=== PATIENT | male | born 1955 ===

== ENCOUNTER 2025-04-19 13:19 | Outpatient (AMB) | payer MEDICARE, MEDICAID, SELFPAY ==
[2025-04-19 13:29] VITALS: BMI 31.0
--- NOTE | 2025-04-19 13:29 | A.PHYSOV_ITS ---
Vital Signs 04/19/25 13:29 Height 5 ft 6 in Weight 192 lb BMI 31.0 Intake Visit Reasons: NPV Ivana Ref- back pain w.sciatica Intake Note: Patient is a 69 year old male here for new patient office visit. Patient is being referred for Back pain with sciatica. 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 The patient reports a long-standing history of lower back pain, which worsens with prolonged standing and necessitates sitting down for relief. This is associated with right-sided sciatica with pain radiating to the buttock and down the leg. Recently, the patient has also experienced pain in both hips upon sitting. The right knee pain is a more recent issue, having started about two months ago, with the pain localized to the side of the knee. It is exacerbated by walking, requiring the patient to hold onto objects for support at home. The patient was in a rehabilitation center for two and a half weeks after experiencing five falls in one day and twisted the knee a couple of times. A knee x-ray performed at the rehab center was reportedly negative, and the patient is currently receiving physical therapy at home. Patient has failed conservative treatment. The patient has a history of diabetes. The patient has made dietary changes, c utting out sugary items and opting for sugar-free alternatives. Other medical history includes diverticulitis, which imposes dietary restrictions such as avoiding seeds, and arthritis in the hands. The patient had an ankle fracture 12 years ago, which was repaired with a bernard. For pain management, the patient takes Tylenol. The patient found muscle relaxants helpful during rehab but is not currently taking them due to concerns about increased fall risk. The patient denies any known drug allergies. I reviewed the referring provider's no prior to consultation. Pain Description - Location: The patient reports pain in the lower back, both hips when sitting, and the right knee, primarily on the side. - Radiation: The back pain radiates down the right leg into the buttock, consistent with sciatica. - Severity: The patient rates both the back pain and knee pain as a 5 out of 10. - Exacerbating factors: Back pain is worsened by prolonged standing and leaning backward; hip pain is triggered by sitting; and knee pain is aggravated by walking. - Relieving factors: Sitting down alleviates the back pain, and bending forward is more comfortable than extending backward. - Associated symptoms and impact on function: The patient has to hold onto things to walk at home and has significant fear of walking outside. [facility] Surgical History History of ankle surgery Hx of appendectomy Social History Alcohol intake: current Alcohol intake frequency: does not drink Patient Tobacco Use Status: Never used Tobacco Review of Systems Narrative Review of Systems - Musculoskeletal: Reports chronic low back pain, bilateral hip pain on sitting, right knee pain, and arthritis in hands. - Neurological: Reports right-sided sciatica. - General: Reports feeling shaky and unsteady, and has a history of falls. - GI: Reports history of diverticulitis with dietary restrictions. Physical Exam Exam Exam: Physical Exam Lumbar Spine: Examination of his lumbar spine, there is no visible swelling or deformity. He is tender to lower lumbar facets. Has full range of motion of the lumbar spine with pain. He does have an increase in pain with facet loading. Special Tests: Lhermittes sign was negative Heel Toe walk is normal Left straight leg raise: Negative Right straight leg raise: Negative Special tests Teri test is negative Ganslen's test is negative SI Joint compression test negative Heide test negative Piriformis stretch is negative Lower Extremities: Full range of motion bilateral lower extremities. He is tender to the medial joint line. No effusion. Ligaments are intact. He does have pain with Manuel testing medially. No calf pain or edema. Neuro: Sensation: Intact to lower extremities bilaterally Strength L2 (Psoas): 5/5 on the left and 5/5 on the right. L3 (Quads): 5/5 on the left and 5/5 on the right. L4 (Ant tibialis): 5/5 on the left and 5/5 on the right. L5 (EHL) 5/5 on the left and 5/5 on the right. S1 (Gastroc): 5/5 on the left and 5/5 on the right. DTR L4: (Patellar) Left 1 Right 1 S1: (Achilles) Left 1 Right 1 Babinski Downgoing No pathologic clonus. No involuntary movement. Vital Signs: BMI result Body Mass Index 31.0 Office Procedures AMB Knee Injection AMB Knee Injection Procedure Details: Right Knee injection: The risks, benefits and complications of the [ ] knee injection were discussed with the patient including but not limited to increased serum glucose, infection, nerve pain, fat atrophy, pigment augmentation, bleeding and pain. All questions were answered to the patient's satisfaction. Verbal consent was obtained. The patient was eager to proceed. Using aseptic technique with Betadine, ethyl chloride was then used to desensitize the skin. Using a 22-gauge needle 40 mg of Kenalog and 3 mL 2% lidocaine were injected into the knee joint. A Band-Aid was applied. Patient tolerated the procedure well without immediate complication. Postinjection instructions were given. Knee Injection - : Right All charges added?: Procedure code (CPT) selection complete Office Meds Kenalog 40 mg/mL suspension for injection Performing Provider: RYLEE Fischer [facility] Administered by: RYLEE Fischer on 04/19/25 17:02 Dose Route Admin Location Dispensed Lot Number Expiration Date [facility] Cover Creaser 40 mg intra-articular 1 mL [id number] [employer] Total Dispensed Waste 1 mL 0 % lidocaine (PF) 20 mg/mL (2 %) injection solution Performing Provider: RYLEE Fischer [facility] Administered by: RYLEE Fischer on 04/19/25 17:02 Dose Route Admin Location Dispensed Lot Number Expiration Date [facility] [place] Cover Creaser 60 mg intra-articular 50 mL [id number] Total Dispensed Waste 50 mL 0 % Assessment & Plan Assessment & Plan (1) Lumbar radiculopathy: Code(s): M54.16 - Radiculopathy, lumbar region Category: Medical (2) Lumbar spondylosis: Code(s): M47.816 - Spondylosis without myelopathy or radiculopathy, lumbar region Category: Medical (3) Osteoarthritis of right knee: Code(s): M17.11 - Unilateral primary osteoarthritis, right knee Category: Medical Qualifiers: Osteoarthritis type: primary Qualified Code(s): M17.11 - Unilateral primary osteoarthritis, right knee Plan Pain Management - Analgesia: The patient is currently taking Tylenol for pain. - Current Pain: The patient rates both back and knee pain at a 5 out of 10. - Activities of Daily Living: Pain interferes with ambulation, requiring the patient to hold onto objects to walk inside the house. - The patient has a fear of walking outside. - Adverse Effects: The patient is not taking prescribed muscle relaxers due to concerns about an increased risk of falling. - Affect: The patient expresses a significant fear of needles. - Aberrant Drug Related Behaviors: No aberrant behaviors were reported or observed. Plan Patient was informed and verbally consented to the use of an ambient scribe for clinic note documentation during this visit. 1. Right Knee Pain An intra-articular corticosteroid injection was administered to the right knee for pain relief. The patient was informed that the injection could provide pain relief for three to six months. The risks, including infection, bleeding, nerve damage, and a temporary increase in blood sugar levels, were discussed, and informed consent was obtained. 2. Chronic Low Back Pain With Right Sciatica An MRI of the lumbar spine will be ordered to better evaluate the discs and nerves, as the patient's prior CT scan is considered suboptimal for this purpose. The patient has no contraindications to an MRI. Follow-up will be arranged to discuss MRI results and consider further interventions, such as a ba ck injection. Patient has failed conservative treatment. 3. Type 2 Diabetes Mellitus The patient was counseled on dietary management, emphasizing whole foods over processed items to improve glycemic control. The patient was advised that the corticosteroid injection may temporarily increase blood sugar and to contact their primary doctor if levels exceed 300 mg/dL. We discussed the benefits of proper nutrition and exercise to maintain a healthy body weight to improve longevity and function. We also discussed the benefits of proper lifting techniques, core strengthening and proper posture. Thank you for allowing me to participate in the care of your patient. Orders: Orders AMB Knee Injection Today M17.11 - Unilateral primary osteoarthritis, right knee MR lumbar spine wo con Today M51.16 - Intervertebral disc disorders with radiculopathy, lumbar region Coding Level of Care Code Tele New Pt Level 4 (04768) Diagnoses Lumbar radiculopathy M54.16 Lumbar spondylosis M47.816 Primary osteoarthritis of right knee M17.11 Osteoarthritis type: primary CPT Codes AMB Knee Injection - Hip/Bursa Injection - : Right ([id number])
--- OUTSIDE RECORDS SUMMARY | 2025-04-19 16:27 | XMS_ITS | Data Portability ---
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 We did discuss that he is due for annual audiometric testing. He does not have time to stay for that today. We will bring him back next available for cerumen removal followed by audiometric testing. [email or web address] Not available 07/11/2024 11:15:11 01/26/2025 01/26/2025 69-year-old male presents for routine cerumen removal and updated audiometric testing. Cerumen impaction removed bilaterally. Bilateral TMs are intact with well aerated middle ear spaces. Audiometric testing demonstrated normal sloping to mild to severe sensorineural hearing loss bilaterally, essentially stable. Patient is a candidate for amplification and medical clearance was provided today. He will follow-up in 6 months for cerumen removal and yearly for audiometric testing. Follow-up sooner with any concerns. [email or web address] Not available 01/26/2025 10:21:08 Plan of Treatment Reminders Order Date Submit Date Provider Last Modified By Organization Details Last Modified Time Details Appointments Establish ed 15 2025 09:00A M MICHAEL FREEMAN PA-C Not available Not available Not available Lab None recorded. Referral None recorded. Procedures None recorded. Surgeries None recorded. Imaging XR, chest, 2 view 2023 024 [facility] ([facility]), [address] [place], [address], 11/03/2023 08:30:29 Medication Orders omeprazol e 20 mg capsule,d elayed release 2023 024 [facility][id number], [address] [place], [address], 10/30/2023 11:15:07 Patient TargetsNo targets recorded. Patient InstructionsNo instructions recorded. Reason for Referral None Reported. Results Created Date Observation Date Name Description Value Unit Range Abnormal Flag Note LastModifiedBy Organization Detail LastModifiedTime 11/03/19 24 11/02/2023 XR, chest , 2 view No observ ation record ed. [facility] ([facility]) [address] [place], [address], 11/30/2023 10:11:49 01/13/20 24 08/28/2022 imagi ng/di agnos tic resul t No observ ation record ed. [email or web address] Not Available 03:57:55 01/27/20 25 audio gram No observ ation record ed. BARCODE Not Available 2024 13:43:58 Result Notes None recorded. Problems Name Problem SNOMED Code Status Onset Date Resolution Date Notes Provider Name and Address Organization Details Recorded Time Sensorine ural hearing loss of bilateral ears 697890549 Active 2016 Sensorine ural hearing loss, bilateral ; Note: Date Diagnosed : 11/04/2016 10:49 AM (H90.3) Not Available [facility] 4 03:32:35 Impacted cerumen of bilateral ears 12372810747 02000 Active 2016 Impacted cerumen, bilateral ; Note: Date Diagnosed : 11/04/2016 10:23 AM (H61.23) Not Available [facility] 4 03:32:36 Laryngoph aryngeal reflux 637385546 Active 2023 TINO LOONEY MD [address] [place] [address], [facility] [place], [address] , [facility] - [facility] 4 11:13:30 Chronic cough 77799563 Active 2023 TINO LOONEY MD [address] [place] [address],[place] [address], [place], [address] , [facility] - [facility] 4 11:15:14 Problem Notes None recorded. Procedures Surgical History Date Name Laterality Status Provider Name and Address Organization Details Recorded Time 01/27/20 25 Cerumen removal without microscope bilat completed CHAS BARTHOLOMEW PA-C [address] [place] [address],[place] [address], [place], [address], [place] - [facility] 01/26/2025 09:22:49 01/27/20 25 Air & Speech Audio with Tymps - [id number], [id number] & [id number] completed DARIO LEVI MA, CCC-A [address] [place] [address],[place] [address], [place], [address], [facility] - [facility] 01/26/2025 09:45:56 07/11/19 25 Cerumen removal without microscope bilat completed Alma Delia Amaro [place] - [facility] 07/11/2024 11:14:33 10/30/19 24 Fiberoptic Laryngoscopy (Comprehensive) completed TINO LOONEY MD [address] [place] [address],[place] [address], [place], [address], [facility] - [facility] 10/31/2023 15:12:53 Imaging Results None recorded. Procedure Notes None recorded. Medical Equipment None Reported. Allergies No known drug allergies Medications Name Sig Start Date Stop Date Status Note LastModified by Organization Details LastModified Time metformin 500 mg tablet TAKE 1 TABLET BY MOUTH THREE TIMES A DAY active Not Available Not Available No t Available atorvasta tin 20 mg tablet TAKE 1 TABLET (20 MG TOTAL) BY MOUTH ONCE DAILY active Not Available Not Available No t Available acetamino phen 500 mg tablet TAKE 1 TABLET BY MOUTH EVERY 4-6 HOURS NEEDED FOR FEVER OR PAIN 10/29 completed Not Available Not Available Not Available levothyro xine 25 mcg tablet 2019 active Medicati on ID: [id number] D uration Value: 90 Brand Name: levothyr oxine Se nd Method: E-Prescr ibed Sub s Allowed: subs OK Speci al Instruct ion: TAKE 1 TABLET BY MOUTH EVERY DAY Medi cationGe nericNam e: levothyr oxine Not Available Not Available Not Available lorazepam 0.5 mg tablet 01/03 completed Medicati on ID: [id number] D uration Value: 30 Reason: () Brand Name: lorazepa m Send Method: E-Prescr ibed Sub s Allowed: subs OK Speci al Instruct ion: TAKE 1 TABLET BY MOUTH ONCE A DAY NEEDED M edicatio nGeneric Name: lorazepa m Not Available Not Available Not Available tamsulosi n 0.4 mg capsule TAKE 1 CAPSULE (0.4 MG TOTAL) BY MOUTH 30 MINUTES AFTER SAME MEAL DAILY active Not Available Not Available No t Available trazodone 100 mg tablet 10/29 completed Medicati on ID: [id number] D uration Value: 90 Brand Name: trazodon e Send Method: E-Prescr ibed Sub s Allowed: subs OK Speci al Instruct ion: TAKE 3 TABLETS BY MOUTH EVERY DAY AT BEDTIME Medicati onGeneri cName: trazodon e Medica tion ID: [id number] D uration Value: 90 Brand Name: trazodon e Send Method: E-Prescr ibed Sub s Allowed: subs OK Speci al Instruct ion: TAKE 3 TABLETS BY MOUTH EVERY DAY AT BEDTIME Medicati onGeneri cName: trazodon e Not Available Not Available Not Available levothyro xine 50 mcg tablet TAKE 1 TABLET BY MOUTH EVERY DAY active Not Available Not Available No t Available simvastat in 20 mg tablet 01/03 completed Medicati on ID: [id number] D uration Value: 30 Reason: () Brand Name: simvasta tin Send Method: E-Prescr ibed Sub s Allowed: subs OK Speci al Instruct ion: TAKE 1 TABLET BY MOUTH EVERY EVENING Medicati onGeneri cName: simvasta tin Not Available Not Available Not Available trazodone 150 mg tablet TAKE 2 TABLETS BY MOUTH AT BEDTIME. active Not Available Not Available No t Available trazodone 300 mg tablet TAKE 1 TABLET BY MOUTH EVERYDAY AT BEDTIME active Not Available Not Available No t Available docusate sodium 100 mg capsule TAKE 1 CAPSULE BY MOUTH TWICE A DAY active Not Available Not Available No t Available omeprazol e 20 mg capsule,d elayed release TAKE 1 CAPSULE EVERY DAY BY ORAL ROUTE BEFORE MEAL(S). 2023 active Not Available Not Available Not Sawyerai lable gabapenti n 100 mg capsule TAKE 1 CAPSULE BY MOUTH AT BEDTIME. active Not Available Not Available No t Available ondansetr on 4 mg disintegr ating tablet DISSOLVE 1 TABLET BY MOUTH EVERY 6 TO 8 HOURS. 10/29 completed Not Available Not Available Not Available metformin ER 500 mg tablet,ex tended release 24 hr 10/29 completed Medicati on ID: [id number] D uration Value: 90 Brand Name: metformi n Send Method: E-Prescr ibed Sub s Allowed: subs OK Speci al Instruct ion: TAKE 1 TABLET BY MOUTH EVERY DAY WITH FOOD AND WATER Me dication GenericN kaykay: metformi n Medica tion ID: [id number] D uration Value: 90 Brand Name: metformi n Send Method: E-Prescr ibed Sub s Allowed: subs OK Speci al Instruct ion: TAKE 1 TABLET BY MOUTH EVERY DAY WITH FOOD AND WATER Me dication GenericN kaykay: metformi n Not Available Not Available Not Available sertralin e 50 mg tablet TAKE 1 TABLET BY MOUTH EVERY DAY active Not Available Not Available No t Available amoxicill in 875 mg-potass ium clavulana te 125 mg tablet TAKE 1 TABLET BY MOUTH TWICE A DAY 10/29 completed Not Available Not Available Not Available oxycodone 5 mg tablet TAKE 1 TABLET BY MOUTH EVERY 6 TO 8 HOURS NEEDED FOR SEVERE PAIN (SCALE 7-10). 10/29 completed Not Available Not Available Not Available Vitamin D3 25 mcg (1,000 unit) tablet TAKE 1 TABLET (1,000 UNITS TOTAL) BY MOUTH DAILY active Not Available Not Available No t Available duloxetin e 30 mg capsule,d elayed release TAKE 1 CAPSULE BY MOUTH EVERY DAY active Not Available Not Available No t Available OneTouch Verio test strips 2019 active Medicati on ID: [id number] D uration Value: 90 Brand Name: OneTouch Verio test strips S end Method: E-Prescr ibed Sub s Allowed: subs OK Speci al Instruct ion: USE TO TEST BLOOD SUGAR DAILY Me dication GenericN kaykay: OneTouch Verio test strips Not Available Not Available Not Available Linzess 145 mcg capsule Take 1 capsule every day by oral route. active Not Available Not Available No t Available Linzess 290 mcg capsule TAKE 1 CAPSULE (290 MCG TOTAL) BY MOUTH 1 (ONE) TIME EACH DAY IN THE MORNING. active Not Available Not Available No t Available OneTouch Delica Plus Lancet 30 gauge USE INSTRUCT ED active Not Available Not Available No t Available Vitals Date Recorded Body height Body mass index (BMI) Body weight Provider Name and Address Organization Details Last Updated DateTime 07/11/2024 167.64 cm 31.8 kg/m2 76742.7 g Angelia Gonsalves [facility] 07/11/2024 11:02:13 Date Recorded Body height Body mass index (BMI) Body weight Provider Name and Address Organization Details Last Updated DateTime 10/30/2023 167.64 cm 31.8 kg/m2 38170.7 g iGselle Madrigal [facility] 10/30/2023 10:52:41 Date Recorded Body height Body mass index (BMI) Body weight Provider Name and Address Organization Details Last Updated DateTime 01/26/2025 167.64 cm 31.2 kg/m2 67712.33 g Chely Perez [facility] 01/26/2025 09:00:40 Social History None recorded. Functional Status Question Answer Note LastModified by Organization D etails LastModified Time What is your level of alcohol consumption? None [email or web address] Information not available 10/30/2023 Mental Status None recorded. Family History Nothing Reported. Medical History Condition Response Allergies/Hayfever N Cancer Y Thyroid Problems Y Asthma N GERD/Reflux N Past Encounters Encounter ID Performer Location Encounter Start Date Encounter Closed Date Diagnosis/Indication Diagnosis SNOMED-CT Code Diagnosis ICD10 Code Diagnosis IMO Codes Diagnosis Note [id number] TINO LOONEY MD [facility] [address] [address] 10/30/2023 10:44:15 10/30/2023 11:21:09 Laryngopharyngeal reflux 674669298 K21.9 68-year-ol d male with a history of diabetes presents for evaluation of chronic cough which has been for years with some more recent soreness in his throat and difficulty swallowing .On exam, there is no mass, ulcer, or lesion, but there are some reflux changes, and he does have some risk factors for reflux. I did recommend a trial of omeprazole . We reviewed reflux precaution s.I also recommende d chest x-ray as he has not yet had this is part of his workup for chronic cough.We did discuss that his anatomy is concerning for sleep apnea, and he does have some difficulty with sleeping and he does have some daytime fatigue. Further testing could include PSG. Chronic cough 74778418 R 05.3 [id number] ALMA DELIA AMARO PA-C [facility] [address] [address] 07/11/2024 10:59:16 07/11/2024 11:12:33 Impacted cerumen of bilateral ears 0249958495 360019 H61.23 Sensorineu ral hearing loss of bilateral ears 732111226 H90.3 [id number] CHAS BARTHOLOMEW PA-C [facility] [address] [address] 01/26/2025 08:54:26 01/26/2025 10:15:54 Sensorineural hearing loss of bilateral ears 525337025 H90.3 Audiologic al evaluation results:Ri ght ear:Normal hearing thru 750Hz sloping to a mild to severe SNHL with good word recognitio n.Left ear:Normal through 750 Hz sloping to a sloping to a mild to severe SNHL with excellent word recognitio n. Tympanomet ry:Right Ear:Type AdLeft Ear:Type Ad Impacted c erumen of bilateral ears 2159226719 772010 H61.23 Health Concerns Section Related Observation LastModified by Organization Detai ls LastModified Time None Recorded Concern Status LastModified by Organization Details LastModified Time None Recorded Advance Directives Directive None Recorded Payers Insurance Date Sequence Insurance Name Policy Number Policy Herbert Covered Member ID Herbert Member ID Guarantor Name 01/26/2025 2 [place] [facility] Marty Johns Jr [id number] Marty Johns Jr 02/01/[address] [facility] - DUAL ELIGIBLE - [facility] PL[facility] (MEDICARE REPLACEMENT/ ADVANTAGE - HMO) Marty Diez Nat Brooks [id number] Marty Johns Jr Notes Date Note Type Note Provider Name and Address Organization Details Recorded Time 10/30/2023 text/html ROS as noted in the [facility] 68-year-old male presents today for evaluation of chronic cough. He has had frequent cough for years. Lately he has felt as though his throat is little more sore and swollen. It can be difficult to swallow certain foods.He denies any heartburn he denies any allergies he denies any asthma.He is usually seen for regular ear cleanings. TINO LOONEY MD [address] [place] [address], [address], [place] - [facility] 10/31/2023 15:15:23 07/11/2024 text/html ROS as noted in the [facility] 68-year-old male presents for cerumen removal. Reports hearing seems stable. No otalgia, otorrhea, nor recent infections. BALJIT DEL TORO MD [address] [place] [address],[address], [address], [facility] - [facility] 07/17/2024 11:33:03 01/26/2025 text/html ROS as noted in the [facility] 69-year-old male presents for routine cerumen removal and updated audiometric testing. He reports gradual decline in his hearing over the past year. Denies otalgia and otorrhea. OLIVA BUITRAGO MD [address] [place] [address],[address], [address], [facility] - [facility] 01/30/2025 07:51:48
--- OUTSIDE RECORDS SUMMARY | 2025-04-19 16:27 | XMS_ITS ---
Author Name [facility] Organization Unknown Care Team Organization Name Specialty Phone Email Start Date End Germain RodriguesiatrGuillermo Suazo 10/25/2022 [facility]
--- OUTSIDE RECORDS SUMMARY | 2025-04-19 16:27 | XMS_ITS | Clinical Summary ---
Author Organization [facility] Address [address] [place] [address] Care Team Providers Care Air Crew Officer Name Role Phone Jaclyn Merlos MD Primary Care Provider [phone] Allergies No known active allergies Medications Medication Sig Dispensed Refills Start Date End Date Status LORazepam (ATIVAN) 0.5 MG tablet Take 0.5 mg by mouth every 6 (six) hours as needed. 0 Active simvastatin (ZOCOR) tablet 20 mg Take 20 mg by mouth every night at bedtime. 0 Active traZODone (DESYREL) 100 MG tablet Take 100 mg by mouth every night at bedtime. 0 Active cholecalciferol (VITAMIN D3) 1000 UNITS tablet Take 2,000 Units by mouth daily. 0 Active Docusate Sodium (COLACE PO) Take by mouth. 0 Active Active Problems No known active problems Social History Tobacco Use Types Packs/Day Years Used Date Smoking Tobacco: Never Smokeless Tobacco: Never Alcohol Use Standard Drinks/Week Comments No 0 (1 standard drink = 0.6 oz pur e alcohol) Sex and Gender Information Value Date Recorded Sex Assigned at Not on file Gender Identity Not on file Sexual Orientation Not on file Last Filed Vital Signs Vital Sign Reading Time Taken Comments Blood Pressure 148/84 05/07/2017 11:22 AM EST Pulse 82 05/07/2017 11:22 AM EST Temperature - - Respiratory Rate - - Oxygen Saturation - - Inhaled Oxygen Concentration - - Weight 92.9 kg (204 lb 12.8 oz) 017 11:22 AM EST Height 170.2 cm (5' 7 ) 05/07/2017 11:2 2 AM EST Body Mass Index 32.08 05/07/2017 11:22 AM EST Plan of Treatment Health Maintenance Due Date Last Done Comments Hepatitis C Screening 1955 COVID-19 Vaccine (#1) 02/19/1954 Depression Screening 1965 Preventative Health Evaluation 08/20/1971 DTap / Tdap / Td (1 - Tdap) 1972 Colon Cancer Screening (Colonoscopy) 1998 Shingrix-Zoster Vaccine (1 of 2) 08/20/2003 Fall Risk Assessment 2018 Pneumococcal Vaccine (1 of 1 - PCV) 2018 Influenza Vaccine (#1) 2025 RSV Adult > 60+ Yrs or Pregn ant (1 - 1-dose 75+ series) 2028 Hepatitis B Vaccines Aged Out No long er eligible based on patient's age to complete this topic RSV Ped < 20 months Aged Out No longe r eligible based on patient's age to complete this topic Care Teams Air Crew Officer Relationship Specialty Start Date End Date Jaclyn Merlos MD [address] [place] [address] PCP - General Internal Medicine 05/07/17
--- OUTSIDE RECORDS SUMMARY | 2025-04-19 16:27 | XMS_ITS | Continuity of Care Document ---
Author Organization [place] [facility], [facility] Address [address] [place] [address] Care Team Providers Care Inspector Firearms Name Role Phone MANDEEP YE Primary Care Provider [phone] Assessment Encounter Date Assessment Date Assessment LastModified by Organization Details LastModified Time 01/26/2025 01/26/2025 69-year-old male presents for routine [...] audiometric testing. Follow-up sooner with any concerns. Not available 01/26/2025 10:21:08 Plan of Treatment Reminders Order Date Submit Date Provider Last Modified By Organization Details Last Modified Time Details Appointments Establish ed 15 2025 09:00A M MICHAEL FREEMAN PA-C Not available Not available Not available Lab None recorded. Referral None recorded. Procedures None recorded. Surgeries None recorded. Imaging None recorded. Medication Orders None recorded. Patient TargetsNo targets recorded. Patient InstructionsNo instructions recorded. Reason for Referral None Reported. Results Created Date Observation Date Name Description Value Unit Range Abnormal Flag Note LastModifiedBy Organization Detail LastModifiedTime 01/27/20 25 audio gram No observ ation record ed. BARCODE Not Available 2024 13:43:58 Result Notes None recorded. Problems Name Problem SNOMED Code Status Onset Date Resolution Date Notes Provider Name and Address Organization Details Recorded Time Sensorine ural hearing loss of bilateral ears 450534741 Active 2016 Sensorine ural hearing loss, bilateral ; Note: Date Diagnosed : 11/04/2016 10:49 AM (H90.3) Not Available [facility] 4 03:32:35 Impacted cerumen of bilateral ears [id number] 69467 Active 2016 Impacted cerumen, bilateral ; Note: Date Diagnosed : 11/04/2016 10:23 AM (H61.23) Not Available [facility] 4 03:32:36 Laryngoph aryngeal reflux 727600139 Active 2023 TINO LOONEY MD [address],[facility], [place], [address] , [facility] - [facility] 4 11:13:30 Chronic cough 68595316 Active 2023 TINO LOONEY MD [address] [facility] [place], [facility] [place], [address] , [facility] - [facility] 4 11:15:14 Problem Notes None recorded. Procedures Surgical History Date Name Laterality Status Provider Name and Address Organization Details Recorded Time 01/27/20 25 Cerumen removal without microscope bilat completed CHAS BARTHOLOMEW PA-C [address] [facility],[place] [address], [place], [address], [facility] - [facility] 01/26/2025 09:22:49 01/27/20 25 Air & Speech Audio with Tymps - [id number], 04877 & 35853 completed DARIO LEVI MA, CCC-A [address] [facility] [place],[facility], [place], [address], [facility] - [facility] 01/26/2025 09:45:56 07/11/19 25 Cerumen removal without microscope bilat completed Alma Delia Collazo [place] - [facility] 07/11/2024 11:14:33 10/30/19 24 Fiberoptic Laryngoscopy (Comprehensive) completed TINO LOONEY MD [address],[facility], [place], [address], [facility] - [facility] 10/31/2023 15:12:53 Imaging Results None recorded. Procedure [...] mcg tablet 2019 active Medicati on ID: [id number] D uration Value: 90 Brand Name: levothyr oxine Se nd Method: E-Prescr ibed Sub s Allowed: subs OK Speci al Instruct ion: TAKE 1 TABLET BY MOUTH EVERY DAY Medi cationGe nericNam e: levothyr oxine Not Available Not Available Not Available lorazepam 0.5 mg tablet 01/03 completed Medicati on ID: [id number] D uration Value: 30 Reason: () Brand Name: lorazepa m Send Method: E-Prescr ibed Sub s Allowed: subs OK Speci al Instruct ion: TAKE 1 TABLET BY MOUTH ONCE A DAY NEEDED M edicatio Emelyeneric Name: lorazepa m Not Available Not Available Not Available tamsulosi n 0.4 mg capsule TAKE 1 CAPSULE (0.4 MG TOTAL) BY MOUTH 30 MINUTES AFTER SAME MEAL DAILY active Not Available Not Available No t Available trazodone 100 mg tablet 10/29 completed Medicati on ID: [id number] D uration Value: 90 Brand Name: trazodon e Send Method: E-Prescr ibed Sub s Allowed: subs OK Speci al Instruct ion: TAKE 3 TABLETS BY MOUTH EVERY DAY AT BEDTIME Medicati onGeneri cName: trazodon e Medica tion ID: [id number] D uration Value: 90 Brand Name: trazodon [...] mg tablet 01/03 completed Medicati on ID: [id number] D uration Value: 30 Reason: () Brand Name: vicente rabago Send Method: E-Prescr ibed Sub s Allowed: [...] 2023 active Not Available Not Available Not Avai lable gabapenti n 100 mg capsule TAKE 1 CAPSULE BY MOUTH AT BEDTIME. active Not Available Not Available No t Available ondansetr on 4 mg disintegr ating tablet DISSOLVE 1 TABLET BY MOUTH EVERY 6 TO 8 HOURS. 10/29 completed Not Available Not Available Not Available metformin ER 500 mg tablet,ex tended release 24 hr 10/29 completed Medicati on ID: [id number] D uration Value: 90 Brand Name: joanna n Send Method: E-Prescr ibed Sub s Allowed: subs OK Speci al Instruct ion: TAKE 1 TABLET BY MOUTH EVERY DAY WITH FOOD AND WATER Me dication GenericN kaykay: metformi n Medica tion ID: [id number] D uration Value: 90 Brand Name: metformi [...] test strips 2019 active Medicati on ID: [id number] D uration Value: 90 Brand Name: OneTouch [...] Updated DateTime 01/26/2025 167.64 cm 31.2 kg/m2 99134.33 g Chely Perez [place] - [facility] 01/26/2025 09:00:40 Social History None recorded. [...] ICD10 Code Diagnosis IMO Codes Diagnosis Note [id number] CHAS BARTHOLOMEW PA-C [facility] [address] [address] 01/26/2025 08:54:26 01/26/2025 10:15:54 Sensorineural hearing loss of bilateral ears 992988085 H90.3 Audiologic al evaluation results:Ri ght ear:Normal hearing thru 750Hz sloping to a mild to severe SNHL with good word recognitio n.Left ear:Normal through 750 Hz sloping to a sloping to a mild to severe SNHL with excellent word recognitio n. Tympanomet ry:Right Ear:Type AdLeft Ear:Type Ad Impacted c erumen of bilateral ears [id number] H61.23 Health Concerns Section Related Observation LastModified by Organization Detai ls LastModified Time None Recorded Concern Status LastModified by Organization Details LastModified Time None Recorded Payers Encounter Date Sequence Insurance Name Policy Number Policy Herbert Covered Member ID Herbert Member ID Guarantor Name 01/26/2025 2 [place] [facility] Marty Johns Jr [id number] Marty Johns Jr 01/26/2025 1 [facility] - DUAL ELIGIBLE - [facility] (MEDICARE REPLACEMENT/ ADVANTAGE - HMO) Marty Johns Jr [id number] Marty Johns Jr Notes Date Note Type Note Provider Name and Address Organization Details Recorded Time 01/26/2025 text/html ROS as noted in the HPI 69-year-old male presents for routine cerumen removal and updated audiometric testing. He reports gradual decline in his hearing over the past year. Denies otalgia and otorrhea. OLIVA BUITRAGO MD [address] [place] [address], [address], [facility] - [facility] 01/30/2025 07:51:48
== END 2025-04-19 14:21 | disposition home or self-care (01) ==
LOC: HO.HPHYS 13:19
PROVIDERS: PCP Internal Medicine; Visit Provider Physician Assistant
DX: M54.16 Radiculopathy, lumbar region (principal); M47.816 Spondylosis without myelopathy or radiculopathy, lumbar region; M17.11 Unilateral primary osteoarthritis, right knee
CPT/HCPCS: 20610; 99204

== ENCOUNTER → 2025-04-19 13:19 | Outpatient (BNVA) | payer MEDICARE, MEDICAID, SELFPAY | PROVIDERS: PCP Internal Medicine; Visit Provider Physician Assistant | DX: M17.11 Unilateral primary osteoarthritis, right knee (principal); M54.16 Radiculopathy, lumbar region; M47.816 Spondylosis without myelopathy or radiculopathy, lumbar region | CPT/HCPCS: 20610; 99202; J2003; J3301 ==